=== PATIENT | male | born 1975 | race Hispanic/Latino ===

== ENCOUNTER 2021-01-05 16:24 | Inpatient (IN) | payer OTHER ==
--- OUTSIDE RECORDS SUMMARY | 2021-01-05 16:26 | XMS REPORT | Continuity of Care Document ---
:1975 Author Organization [facility] t Address [address] [place] [address] Care Team Providers Name Role Phone Yamini FISHER, Dyan Oliver Attending Clinician Problems This patient has no known problems. Allergies, Adverse Reactions, Alerts This patient has no known allergies or adverse reactions. Medications This patient has no known medications. Procedures This patient has no known procedures. Encounters Start End Encounter Admission Attending Care Care Encounter Source Date/Time Date/Time Type Type Clinicians Facility Department ID 2021-01-03 2021-01-03 Emergency [facility] [id number] 02:44:00 04:12:00 Dyan Sampson [id number] [place] [id number] [place] [id number] Results This patient has no known results.
[2021-01-05] MEDS ORDERED: MORPHINE 4 MG/ML SYR ONE (18:32)
[2021-01-05] MEDS ORDERED: NA CHLORIDE 0.9% 0 ML ONE (18:32)
[2021-01-05] MEDS ORDERED: ONDANSETRON 4 MG/2 ML VIAL ONE (18:32)
[2021-01-05] MEDS ORDERED: PIPER/TAZO/NS 3.375gm 0 GM/0 ML BAG ONE (18:33)
--- NOTE | 2021-01-05 18:36 | RAD REPORT ---
EXAM DESCRIPTION: RAD - Chest Single View - 01/05/2021 6:21 pm CLINICAL HISTORY: pre-op Chest pain. COMPARISON: No comparisons FINDINGS: Portable technique limits examination quality. The lungs are grossly clear. The heart is normal in size. No displaced fractures. IMPRESSION: No acute intrathoracic process suspected.
[2021-01-05 18:39] LABS: Absolute Lymphocytes (CBC) 0.7 K/uL (0.7-4.9); Basophils % 0.1 % (0-1.3); Hematocrit 42.6 % (39.6-49.0); Lymphocytes % 2.9 % (15.3-44.8); MPV 6.9 fL (7.6-11.3); RBC Red Blood Cell Count 5.18 M/uL (4.33-5.43)
[2021-01-05] MEDS ORDERED: NA CHLORIDE 0.9% 1,000 ML ONE (18:39)
[2021-01-05] MEDS ORDERED: PIPER/TAZO/NS 3.375gm 3.375 GM/100 ML BAG ONE (18:39)
[2021-01-05 18:45] LABS: Protime INR 1.44
--- NOTE | 2021-01-05 18:46 | RAD REPORT ---
EXAM DESCRIPTION: CTAbdomen Pelvis W Contrast - 01/05/2021 6:39 pm CLINICAL HISTORY: Abdominal pain. evaluate abscess COMPARISON: No comparisons TECHNIQUE: Biphasic CT imaging of the abdomen and pelvis was performed with 100 ml non-ionic IV cont rast. All CT scans are performed using dose optimization technique as appropriate and may include automated exposure control or mA/KV adjustment according to patient size. FINDINGS: The lung bases are clear. The liver, spleen, pancreas, adrenal glands and kidneys are within normal limits. No bowel obstruction, free air, or free fluid. . Appendectomy. No evidence of significant lymphaden opathy. Large thick walled complex right sided perianal abscess is present measuring 7.0 x 6.0 cm. Adjacent i nflammatory changes seen in the skin and subcutaneous fatty tissues. No suspicious bony findings. IMPRESSION: Large 7 x 6 cm right-sided perirectal abscess.
[2021-01-05 18:51] LABS: ALT/SGPT 81 U/L (12-78); AST/SGOT 27 U/L (15-37); Albumin 3.1 g/dL (3.4-5.0); Alkaline Phosphatase 173 U/L (45-117); BUN Blood Urea Nitrogen 16 mg/dL (7-18); Bicarbonate 26 mmol/L (21-32); Bilirubin Direct 0.7 mg/dL (0-0.2); Bilirubin Total 1.3 mg/dL (0.2-1.0); Glucose Level 84 mg/dL (74-106); Magnesium 2.3 mg/dL (1.8-2.4); NT PRO-BNP 95 pg/mL (<125); Potassium 3.2 mmol/L (3.5-5.1); Protein, Total 9.2 g/dL (6.4-8.2); Sodium Level 133 mmol/L (136-145); Troponin (Emerg Dept Use Only) < 0.02 ng/mL (0.0-0.045)
--- NOTE | 2021-01-05 19:00 | ER ---
Nurse's Notes [facility] Name: Kory Aguilar Age: 45 yrs Sex: Male : 1975 Arrival Date: 01/05/2021 Time: 16:25 Bed 8 Private MD: Diagnosis: Right sided perianal abscess;Elevated white blood cell count Presentation: 01/05 17:07 Chief complaint: Patient states: Abscess on the anal region x 1 week. Was seen by Dr. tamela Emanuel today and was sent to the ER. Coronavirus screen: Client denies travel out of the [place] in the last 14 days. At this time, the client does not indicate any symptoms associated with coronavirus-19. Ebola Screen: Patient negative for fever greater than or equal to 101.5 degrees Fahrenheit, and additional compatible Ebola Virus Disease symptoms Patient denies exposure to infectious person. Patient denies travel to an Ebola-affected area in the 21 days before illness onset. No symptoms or risks identified at this time. Initial Sepsis Screen: Does the patient meet any 2 criteria? No. Patient's initial sepsis screen is negative. Does the patient have a suspected source of infection? No. Patient's initial sepsis screen is negative. Risk Assessment: Do you want to hurt yourself or someone else? Patient reports no desire to harm self or others. Onset of symptoms was January 05, 2021. 17:07 Method Of Arrival: Wheelchair ca1 17:07 Acuity: FRANCIS 3 ca1 Historical: - Allergies: 17:09 No Known Allergies; ca1 - Home Meds: 17:10 valsartan-hydrochlorothiazide 320-12.5 mg oral tab 1 tab once daily [Active]; ca1 - PMHx: 17:09 Hypertension; ca1 - PSHx: 17:10 Appendectomy; ca1 - Immunization history:: Flu vaccine is not up to date. - Social history:: Smoking status: Patient denies any tobacco usage or history of. Screenin:20 Abuse screen: Denies threats or abuse. Nutritional screening: No deficits noted. aa5 Tuberculosis screening: No symptoms or risk factors identified. Fall Risk None identified. Assessment: 18:10 General: Appears uncomfortable, Behavior is calm, cooperative. Pain: Complains of pain aa5 in gluteal cleft Pain currently is 10 out of 10 on a pain scale. Quality of pain is described as pressure, tender, Pain began 4-5 days ago Is continuous. Neuro: Level of Consciousness is awake, alert, obeys commands, Oriented to person, place, time, situation. Cardiovascular: Patient's skin is warm and dry. Rhythm is sinus tachycardia. Respiratory: Airway is patent Respiratory effort is even, unlabored, Respiratory pattern is regular, symmetrical. GI: Abdomen is round non-distended, Bowel sounds present X 4 quads. Abd is soft and non tender X 4 quads. Reports nausea. : No signs and/or symptoms were reported regarding the genitourinary system. EENT: No signs and/or symptoms were reported regarding the EENT system. Derm: Skin is pink, warm \T\ dry. Musculoskeletal: Range of motion: intact in all extremities. 18:30 Reassessment: Patient is alert, oriented x 3, equal unlabored respirations, skin aa5 warm/dry/pink. Patient states feeling better. Pt to CT via stretcher. 19:00 Reassessment: Patient is alert, oriented x 3, equal unlabored respirations, skin aa5 warm/dry/pink. Pain: Pain currently is 9 out of 10 on a pain scale. 20:21 Reassessment: Patient and/or family updated on plan of care and expected duration. Pain ea level reassessed. Patient is alert, oriented x 3, equal unlabored respirations, skin warm/dry/pink. Pt admitted to second floor, left ED via stretcher per tech. Pt tolerating well. Vital Signs: 17:07 BP 142 / 94; Pulse 122; Resp 18 S; Temp 98.9; Pulse Ox 95% on R/A; Weight 95.25 kg (R); ca1 Height 5 ft. 9 in. (175.26 cm) (R); Pain 10/10; 18:17 BP 145 / 105; Pulse 120; Resp 22 S; Pulse Ox 98% on R/A; aa5 20:22 BP 149 / 90; Pulse 113; Resp 18; Temp 98.9; Pulse Ox 95% ; ea 17:07 Body Mass Index 31.01 (95.25 kg, 175.26 cm) ca1 ED Course: 16:25 Patient arrived in ED. am2 16:27 Radha Ivey MD is Attending Physician. ma2 17:08 Triage completed. ca1 17:10 Arm band placed on right wrist. ca1 17:11 Magalys Kevin FNP-C is PHCP. kb 17:11 Radha Ivey MD is Attending Physician. kb 18:01 Magalys Kevin FNP-C is PHCP. kb 18:01 Radha Ivey MD is Attending Physician. kb 18:06 Brie Avalos, DAVID is Primary Nurse. aa5 18:15 Patient has correct armband on for positive identification. Bed in low position. Call aa5 light in reach. Side rails up X2. 18:20 Initial lab(s) drawn, by me, sent to lab. Inserted saline lock: 20 gauge in right aa5 antecubital area, using aseptic technique. Blood collected. 18:22 XRAY Chest (1 view) In Process Unspecified. EDMS 18:38 CT Abd/Pelvis - IV Contrast Only In Process Unspecified. EDMS 18:59 Selwyn Emanuel MD is Hospitalizing Provider. kb 19:00 Report given to DAVID Santiago and DAVID Joe. aa5 20:16 No provider procedures requiring assistance completed. Patient admitted, IV remains in ea place. Administered Medications: 18:07 CANCELLED (Physician Discretion): D5-1/2 NS with KCl 10 mEq/L 1000 ml IV at 100 ml/hr aa5 continuous 18:22 Drug: NS 0.9% 1000 ml Route: IV; Rate: 1000 ml; Site: right antecubital; aa5 20:23 Follow up: Response: No adverse reaction; IV Status: Completed infusion; IV Intake: ea 1000ml 18:22 Drug: morphine 4 mg Route: IVP; Site: right antecubital; aa5 18:30 Follow up: Response: No adverse reaction; Pain is decreased aa5 18:22 Drug: Zofran (Ondansetron) 4 mg Route: IVP; Site: right antecubital; aa5 18:30 Follow up: Response: No adverse reaction aa5 18:25 Drug: Zosyn 3.375 grams Route: IVPB; Infused Over: 60 mins; Site: right antecubital; aa5 19:00 Follow up: Response: No adverse reaction aa5 19:30 Drug: Potassium Chloride 40 mEq Route: PO; ea 20:23 Follow up: Response: No adverse reaction ea Intake: 20:23 IV: 1000ml; Total: 1000ml. ea Outcome: 19:00 Decision to Hospitalize by Provider. kb 20:21 Admitted to Med/surg accompanied by tech, via stretcher, room 410, with chart, Report ea called to Receiving nurse 20:21 Condition: stable 20:21 Instructed on the need for admit, Demonstrated understanding of instructions. 20:23 Patient left the ED. ea Signatures: Dispatcher [employer] EDMS Magalys Kevin, MOLD MAKER-C MOLD MAKER-CkBrie Arellano, RN RN Ayala Lane Elena, RN RN Radha Vo MD MD ma2 Aleshia Hutchinson RN RN ca1
--- NOTE | 2021-01-05 19:01 | EDPHYS ---
Physician Documentation [facility] Name: Kory Aguilar Age: 45 yrs Sex: Male : 1975 Arrival Date: 01/05/2021 Time: 16:25 Bed 8 Private MD: ED Physician Radha Ivey HPI: 01/05 16:28 This 45 yrs old Male presents to ER via Unassigned with complaints of dr rissa tracy/rectal pain. 16:28 Dr. Zeng called me. He sent the patient from his office he would like to drain his ma2 large perianal abscess in the OR as it was too large to be done at the office. he would like the patient to get evaluated and request admission from the hospitalist if the patient has chronic medical problems. . patient will be in the waiting room at this time as there is no available bed in er at this time. 19:13 The patient presents with an abscess of the gluteal cleft. Description: draining, kb erythematous, swollen, warm. Onset: The symptoms/episode began/occurred 1 week(s) ago. Possible cause(s): unknown. Associated signs and symptoms: Pertinent positives: drainage, erythema, swelling. Modifying factors: the symptoms are alleviated by nothing, the symptoms are aggravated by movement, pressure, sitting, squeezing the lesion and expressing the contents, touching. Severity of symptoms: At their worst the symptoms were severe, in the emergency department the symptoms are unchanged. The patient has not experienced similar symptoms in the past. The patient has not recently seen a physician. 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 Sent to ER for evaluation and admission. Dr Tracy will take pt to the OR in the morning. Pt reports the abscess has been there for about a week, progressively getting worse. Historical: - Allergies: 17:09 No Known Allergies; ca1 - Home Meds: 17:10 valsartan-hydrochlorothiazide 320-12.5 mg oral tab 1 tab once daily [Active]; ca1 - PMHx: 17:09 Hypertension; ca1 - PSHx: 17:10 Appendectomy; ca1 - Immunization history:: Flu vaccine is not up to date. - Social history:: Smoking status: Patient denies any tobacco usage or history of. ROS: 19:10 Constitutional: Negative for fever, chills, and weight loss, Cardiovascular: Negative kb for chest pain, palpitations, and edema, Respiratory: Negative for shortness of breath, cough, wheezing, and pleuritic chest pain, Abdomen/GI: Negative for abdominal pain, nausea, vomiting, diarrhea, and constipation, MS/Extremity: Negative for injury and deformity, Neuro: Negative for headache, weakness, numbness, tingling, and seizure. 19:10 Skin: Positive for abscess, erythema, swelling, of the gluteal cleft. Exam: 19:12 Constitutional: This is a well developed, well nourished patient who is awake, alert, kb and in no acute distress. Head/Face: Normocephalic, atraumatic. Cardiovascular: Regular rate and rhythm with a normal S1 and S2. No gallops, murmurs, or rubs. No pulse deficits. Respiratory: Respirations even and unlabored. No increased work of breathing, no retractions or nasal flaring. Abdomen/GI: Soft, non-tender. No distention MS/ Extremity: Pulses equal, no cyanosis. Neurovascular intact. Full, normal range of motion. Neuro: Awake and alert, GCS 15, oriented to person, place, time, and situation. Moves all extremities. Normal gait. 19:12 Skin: abscess, that is large, of the gluteal cleft, with drainage, with fluctuance, with induration, with surrounding cellulitis, that is moderate. Vital Signs: 17:07 BP 142 / 94; Pulse 122; Resp 18 S; Temp 98.9; Pulse Ox 95% on R/A; Weight 95.25 kg (R); ca1 Height 5 ft. 9 in. (175.26 cm) (R); Pain 10/10; 18:17 BP 145 / 105; Pulse 120; Resp 22 S; Pulse Ox 98% on R/A; aa5 20:22 BP 149 / 90; Pulse 113; Resp 18; Temp 98.9; Pulse Ox 95% ; ea 17:07 Body Mass Index 31.01 (95.25 kg, 175.26 cm) ca1 MDM: 18:04 Patient medically screened. kb 18:56 Data reviewed: vital signs, nurses notes. Data interpreted: Pulse oximetry: on room air kb is 98 %. Interpretation: normal. Counseling: I had a detailed discussion with the patient and/or guardian regarding: the historical points, exam findings, and any diagnostic results supporting the discharge/admit diagnosis, lab results, radiology results, the need for further work-up and treatment in the hospital. Physician consultation: Selwyn Tracy MD was contacted at 18:58, regarding admission, to the medical/surgical unit. and will see patient. 01/05 16:34 Order name: Basic Metabolic Panel; Complete Time: 18:52 ma2 01/05 16:34 Order name: CBC with Diff ma2 01/05 16:34 Order name: LFT's; Complete Time: 18:52 ma2 01/05 16:34 Order name: Magnesium; Complete Time: 18:52 ma2 01/05 16:34 Order name: NT PRO-BNP; Complete Time: 18:52 ma2 01/05 16:34 Order name: PT-INR; Complete Time: 18:50 ma2 01/05 16:34 Order name: Troponin (emerg Dept Use Only); Complete Time: 18:52 ma2 01/05 16:34 Order name: XRAY Chest (1 view); Complete Time: 18:37 ma2 01/05 17:21 Order name: CT Abd/Pelvis - IV Contrast Only; Complete Time: 18:50 kb 01/05 18:53 Order name: Lactate kb 01/05 18:53 Order name: Procalcitonin kb 01/05 18:54 Order name: Lactate; Complete Time: 20:06 EDMS 01/05 19:34 Order name: SARS-COV-2 RT PCR; Complete Time: 19:35 EDMS 01/05 16:34 Order name: EKG; Complete Time: 16:35 ma2 01/05 16:34 Order name: Cardiac monitoring; Complete Time: 19:04 ma2 01/05 16:34 Order name: EKG - Nurse/Tech; Complete Time: 19:04 ma2 01/05 16:34 Order name: IV Saline Lock; Complete Time: 18:31 ma2 01/05 16:34 Order name: Labs collected and sent; Complete Time: 18:31 ma2 01/05 16:34 Order name: O2 Per Protocol; Complete Time: 18:31 ma2 01/05 16:34 Order name: O2 Sat Monitoring; Complete Time: 18:31 ma2 01/05 16:34 Order name: NPO: at midnight; Complete Time: 18:07 ma2 Administered Medications: 18:07 CANCELLED (Physician Discretion): D5-1/2 NS with KCl 10 mEq/L 1000 ml IV at 100 ml/hr aa5 continuous 18:22 Drug: NS 0.9% 1000 ml Route: IV; Rate: 1000 ml; Site: right antecubital; aa5 20:23 Follow up: Response: No adverse reaction; IV Status: Completed infusion; IV Intake: ea 1000ml 18:22 Drug: morphine 4 mg Route: IVP; Site: right antecubital; aa5 18:30 Follow up: Response: No adverse reaction; Pain is decreased aa5 18:22 Drug: Zofran (Ondansetron) 4 mg Route: IVP; Site: right antecubital; aa5 18:30 Follow up: Response: No adverse reaction aa5 18:25 Drug: Zosyn 3.375 grams Route: IVPB; Infused Over: 60 mins; Site: right antecubital; aa5 19:00 Follow up: Response: No adverse reaction aa5 19:30 Drug: Potassium Chloride 40 mEq Route: PO; ea 20:23 Follow up: Response: No adverse reaction ea Disposition: 01/06 18:46 Co-signature as Attending Physician, Radha Ivey MD. ma2 Disposition: 01/05/21 19:00 Hospitalization ordered by Selwyn Tracy for Observation. Preliminary diagnosis are Right sided perianal abscess, Elevated white blood cell count. - Bed requested for Telemetry/MedSurg (observation). - Status is Observation. ea - Condition is Stable. - Problem is new. - Symptoms are unchanged. Signatures: Dispatcher [employer] EDAL Magalys Kevin, MIKE-C QUILL CLEANING MACHINE OPERATOR-Edna Rojas RN RN Brie Avalos RN RN aa5 Pamela Jacob RN RN ea Alzahri, Mohammad, MD MD ma2 Aleshia Hutchinson RN RN ca1 Corrections: (The following items were deleted from the chart) 01/05 18:07 16:34 D5-1/2 NS with KCl 10 mEq/L 1000 ml IV at 100 ml/hr continuous ordered. ma2 aa5 18:33 18:02 CORONAVIRUS+MR.LAB.BRZ ordered. EDAL EDMS 19:40 19:00 Hospitalization Ordered by Selwyn Tracy MD for Observation. Preliminary mw diagnosis is Right sided perianal abscess; Elevated white blood cell count. Bed requested for Telemetry/MedSurg (observation). Status is Observation. Condition is Stable. Problem is new. Symptoms are unchanged. kb 20:23 19:40 01/05/2021 19:00 Hospitalization Ordered by Selwyn Tracy MD for Observation. ea Preliminary diagnosis is Right sided perianal abscess; Elevated white blood cell count. Bed requested for Telemetry/MedSurg (observation). Status is Observation. Condition is Stable. Problem is new. Symptoms are unchanged. mw
[2021-01-05] MEDS ORDERED: POTASSIUM CL SA 10 MEQ TAB PO ONE (19:38)
[2021-01-05] MEDS ORDERED: ONDANSETRON 4 MG/2 ML VIAL IV PRN (21:16)
[2021-01-05] MEDS ORDERED: ACETAMINOPHEN 500 MG TAB PO PRN (21:16)
[2021-01-05 21:17] VITALS: BMI 31.0
[2021-01-05 22:13] LABS: Blood Morphology Comment NOT SEEN (NOT SEEN); Platelet Estimate ADEQ
[2021-01-05] MEDS: D5 0.45 NS 1,000 ML IV SCH (22:47)
[2021-01-05] MEDS: MORPHINE 4 MG/ML SYR IV PRN (22:48)
[2021-01-05] MEDS ORDERED: PIPERACIL/TAZO 3.375 GM VIAL IV ONE (23:30)
[2021-01-05] MEDS ORDERED: NA CHLORIDE 0.9% 100 ML ONE (23:33)
[2021-01-05] MEDS: PIPER/TAZO/NS 3.375gm 3.375 GM/100 ML BAG IVPB SCH ×2 (23:44→23:45)
[2021-01-06 04:11] LABS: Absolute Lymphocytes (CBC) 1.8 K/uL (0.7-4.9); Basophils % 0.1 % (0-1.3); Hematocrit 35.4 % (39.6-49.0); Lymphocytes % 7.3 % (15.3-44.8); MPV 7.2 fL (7.6-11.3); RBC Red Blood Cell Count 4.34 M/uL (4.33-5.43)
[2021-01-06 04:29] LABS: BUN Blood Urea Nitrogen 11 mg/dL (7-18); Bicarbonate 25 mmol/L (21-32); Glucose Level 87 mg/dL (74-106); Potassium 3.5 mmol/L (3.5-5.1); Sodium Level 132 mmol/L (136-145)
[2021-01-06] MEDS: MORPHINE 4 MG/ML SYR IV PRN ×2 (04:33→09:07)
[2021-01-06] MEDS: D5 0.45 NS 1,000 ML IV SCH ×3 (05:16→21:16)
[2021-01-06] MEDS ORDERED: INFLUENZA VACCINE (for 3y+) 0.5 ML DOSE IMVAC ONE (09:00)
[2021-01-06] MEDS: PIPER/TAZO/NS 3.375gm 3.375 GM/100 ML BAG IVPB SCH ×2 (09:06→17:10)
--- NOTE | 2021-01-06 12:54 | EKG ---
Test Date: 2021-01-05 Test Time: 18:59:24 Finish Patcher: OTTO MEASUREMENT RESULTS: Intervals: Rate: 112 AL: 130 QRSD: 96 QT: 308 QTc: 420 [place]: P: 25 AL: 130 QRS: 29 T: -5 INTERPRETIVE STATEMENTS: Sinus tachycardia Nonspecific T wave abnormality Abnormal ECG No previous ECG available for comparison Electronically Signed On 01-06-21 12:52:40 CDT by Ganesh Rios
[2021-01-06] MEDS ORDERED: Ringers Lactate 1,000 ML IV ONE (13:38)
[2021-01-06] MEDS ORDERED: FENTANYL CITR 100 MCG/2 ML ONE ×2 (14:54→15:46)
[2021-01-06] MEDS ORDERED: dexAMETHasone 10 MG/ML VIAL ONE (14:54)
[2021-01-06] MEDS ORDERED: MIDAZOLAM HCL 2 MG/2 ML INJ ONE (14:54)
[2021-01-06] MEDS ORDERED: LIDOCAINE 1% MPF 30 ML VIAL ONE (14:55)
[2021-01-06] MEDS ORDERED: ONDANSETRON 4 MG/2 ML VIAL ONE (14:55)
[2021-01-06] MEDS ORDERED: KETOROLAC 30 MG/ML INJ ONE (14:55)
[2021-01-06] MEDS ORDERED: propofoL 200 MG/20 ML VIAL IV ONE (14:57)
[2021-01-06] MEDS ORDERED: HYDROCODONE/APAP 7.5/325 MG TAB PO PRN (15:51)
--- NOTE | 2021-01-06 15:55 | P.BOP ---
Preoperative diagnosis: perinal/perirectal abscess Postoperative diagnosis: same Primary procedure: I &D complex perianal/perirectal abscess 7x6 cm Secondary procedure: EUA, anoscopy, rigid proctoscopy Estimated blood loss: <20cc Specimen: pus Findings: as above Anesthesia: General Complications: None Transferred to: Recovery Room Condition: Good
[2021-01-06] MEDS: Levofloxacin 750mg IV 750 MG/150 ML BAG IV SCH (17:06)
--- NOTE | 2021-01-07 00:07 | CON ---
Date of Consultation: 01/06/2021 Diagnosis: Perianal abscess. History Of Present Illness: This is a case of a 45-year-old patient who was seen yesterday in my off ice for perianal abscess. The patient including said the pain was a little bit worse. History of hy pertension. He was sent to the ER. He was admitted overnight, started on IV antibiotics, IV medicat ion. He does not remember exactly what happened. He does know he has this lump, which is large in t he perianal region. No trauma that he can remember. Review of Systems: No shortness of breath. No chest pain. No fever. Ten points otherwise unremarkable. Medical History: Includes hypertension. Medications: Unknown. Allergies: NONE. Social History: He does not drink alcohol. He does not smoke. Family History: Noncontributory. No history of colon cancer. Physical Examination: General: The patient is awake and alert. HEENT: Pupils are equal and reactive, anicteric. Neck: Supple. Chest: Clear. Abdomen: Soft and depressible. Skin: Perianal region shows a large area of about 7 x 6 cm that at least has a swelling, tenderness, bulging consistent with perianal abscess. Extremities: Good capillary refill. Imaging: CAT scan of the abdomen and pelvis interpreted by Dr. Gambino as a large 7 x 6 cm right-sided perirectal abscess. Assessment: Perianal perirectal abscess. The patient fully explained the need for examination under anesthesia, anoscopy, proctoscopy, incision and drainage of the perianal perirectal abscess with guerrero efits, alternatives, and risks including, but not limited to infection, bleeding, damage to adjacent structures, anesthesia complication, bowel perforation, GA, and even . He also understands this may not relieve his symptoms. He might need more than one surgical intervention. He understands he may require wound care. HM/MODL Voice ID: [id number] Report ID: [id number]
[2021-01-07] MEDS: PIPER/TAZO/NS 3.375gm 3.375 GM/100 ML BAG IVPB SCH ×3 (00:47→16:09)
[2021-01-07] MEDS: MORPHINE 2 MG/ML SYR IV PRN ×3 (00:56→11:37)
--- NOTE | 2021-01-07 02:38 | OP ---
Date of Procedure: 01/06/2021 Surgeon: Selwyn Emanuel MD Preoperative Diagnosis: Perianal and perirectal abscess. Postoperative Diagnosis: Perianal and perirectal abscess. Procedure: Incision and drainage of complex perianal/perirectal abscess 7 x 6 cm, examination under anesthesia, anoscopy, rigid proctoscopy. Specimen: Pus. Finding: Complex abscess from the perianal to the perirectal area. Anesthesia: General plus local. Indications: This is a case of a 45-year-old patient who comes with the above. Fully explained the benefits, alternatives, and risks of EUA, anoscopy, proctoscopy, incision and drainage of perianal an d perirectal abscess, which include, but not limited to infection, bleeding, damage to adjacent struc tures, anesthesia complication, nonhealing wound, chronic wound, anal stricture and incontinence, bow el perforation, KS, even . He also understands this may not relieve his symptoms. He might nee d more than one surgical intervention and he will require wound care. He understood, signed the cons ent. Procedure In Detail: The patient was brought to the operating room, placed in supine position. Anes thesia was done without complication. A time-out was called. Precautions were done. At that moment , we proceeded to prep the area in usual sterile fashion. The patient was placed in lateral position before that. A time-out was called. After that I proceeded to do rectal examination and patient galan s a necrotic wound on the perianal region that leading to a large abscess. We did an anoscopy, rigid proctoscopy under direct visualization in the center of the lumen after insufflation without resista nce, and we noticed no major tumors all the way about to 10 cm. We cannot pass anymore since the [facility] ie has a large amount of stools and this evaluation is limited. We did not see any gross mass in t hat region. Once again, a colonoscopy have to be done in the future to look at that area a little bi t better once this acute process has gone. At that moment, I proceeded to remove a necrotic area davion t gave us access to a large abscess coming from perianal now the perirectal region. A counter incisi on had to be made to allow better drainage for this. The sphincter was protected at all times. Prof use irrigation of the area was done. Hemostasis was obtained. Local anesthesia was applied. Then t he area was packed with several inch iodoform packing. The patient tolerated the procedur e well. The patient was sent to Recovery in stable condition. DAVE/RYAN Voice ID: [id number] Report ID: [id number]
[2021-01-07] MEDS: D5 0.45 NS 1,000 ML IV SCH ×3 (05:16→22:26)
[2021-01-07] MEDS: Levofloxacin 750mg IV 750 MG/150 ML BAG IV SCH (15:04)
[2021-01-07 23:15] VITALS: O2SAT 96
[2021-01-08] MEDS: MORPHINE 4 MG/ML SYR IV PRN (00:26)
[2021-01-08] MEDS: PIPER/TAZO/NS 3.375gm 3.375 GM/100 ML BAG IVPB SCH ×2 (00:27→09:18)
[2021-01-08 04:11] LABS: Absolute Lymphocytes (CBC) 2.5 K/uL (0.7-4.9); Basophils % 0.1 % (0-1.3); Hematocrit 34.6 % (39.6-49.0); Lymphocytes % 19.1 % (15.3-44.8); MPV 7.3 fL (7.6-11.3); RBC Red Blood Cell Count 4.21 M/uL (4.33-5.43)
[2021-01-08 04:49] LABS: BUN Blood Urea Nitrogen 13 mg/dL (7-18); Bicarbonate 26 mmol/L (21-32); Glucose Level 95 mg/dL (74-106); Potassium 3.8 mmol/L (3.5-5.1); Sodium Level 142 mmol/L (136-145)
[2021-01-08] MEDS: MORPHINE 2 MG/ML SYR IV PRN ×2 (07:06→10:37)
[2021-01-08] MEDS: D5 0.45 NS 1,000 ML IV SCH (09:19)
--- NOTE | 2021-01-08 12:33 | P.DS ---
Admission Date: 01/06/21 Discharge Date: 01/08/21 Disposition: ROUTINE DISCHARGE Discharge Condition: GOOD Vital Signs/Physical Exam: Temp Pulse Resp BP Pulse Ox 97.0 F 61 16 135/83 99 01/08/21 08:00 01/08/21 08:00 01/08/21 08:00 01/08/21 08:00 01/08/21 08:00 General: Alert, In no apparent distress, Oriented x3, Cooperative HEENT: Normocephalic Neck: Supple Respiratory: Normal air movement Cardiovascular: No edema, Normal pulses Gastrointestinal: Normal bowel sounds, Soft and benign Musculoskeletal: No erythema, No tenderness Integumentary: Other (surgical wounds with no purulent discharge, better. cellutis area smaller) Laboratory Data at Discharge: WBC 13.20 K/uL (4.3-10.9) H D 01/08/21 02:55 Hgb 11.8 g/dL (13.6-17.9) L 01/08/21 02:55 Hct 34.6 % (39.6-49.0) L 01/08/21 02:55 Plt Count 386 K/uL (152-406) 01/08/21 02:55 PT 16.6 SECONDS (9.5-12.5) H 01/05/21 18:20 INR 1.44 01/05/21 18:20 Sodium 142 mmol/L (136-145) 01/08/21 02:55 Potassium 3.8 mmol/L (3.5-5.1) 01/08/21 02:55 BUN 13 mg/dL (7-18) 01/08/21 02:55 Creatinine 0.75 mg/dL (0.55-1.3) 01/08/21 02:55 Glucose 95 mg/dL (74-106) 01/08/21 02:55 Magnesium 2.3 mg/dL (1.8-2.4) 01/05/21 18:20 Total Bilirubin 1.3 mg/dL (0.2-1.0) H 01/05/21 18:20 AST 27 U/L (15-37) 01/05/21 18:20 ALT 81 U/L (12-78) H 01/05/21 18:20 Alkaline Phosphatase 173 U/L (45-117) H 01/05/21 18:20 Home Medications: Amlodipine Besylate [Norvasc] 10 mg PO DAILY 01/05/21 Atorvastatin Calcium [Lipitor*] 10 mg PO DAILY 01/05/21 Cetirizine HCl [Zyrtec] 10 mg PO DAILY 01/05/21 Sertraline HCl 50 mg PO DAILY 01/05/21 Valsartan/Hydrochlorothiazide [Valsartan-Hctz 320-12.5 mg Tab] 1 tab PO DAILY 01/05/21 Physician Discharge Instructions: dry gauze to perianal wound bid Diet: AHA Activity: No lifting more than 10 lbs Followup: TOM SANTOS [Primary Care Provider] -
[2021-01-08 12:59] VITALS: BP 148/95; TEMP 97.3
== END 2021-01-08 14:45 | disposition home or self-care (01) | DRG 344 ==
LOC: ER 16:24 → ERHOLD 20:02 → 4TH 20:27 → OBSVTOIN 01-06 13:08 → 4TH 01-06 17:45
PROVIDERS: ADMIT Surgery; ATTEND Surgery
PROC: 0D9Q0ZZ Drainage of Anus, Open Approach (ICD-10-PCS; 2021-01-06)
PROC: 0D9P0ZZ Drainage of Rectum, Open Approach (ICD-10-PCS; principal; 2021-01-06 13:15)
DX: K61.1 Rectal abscess (principal); U07.1 COVID-19; K61.0 Anal abscess; I10 Essential (primary) hypertension; Z79.899 Other long term (current) drug therapy; Z90.49 Acquired absence of other specified parts of digestive tract
CPT/HCPCS: 36415; 71045; 74177; 80048; 80076; 82565; 83605; 83735; 83880; 84145; 84484; 85025; 85610; 87070; 87075; 87077; 87186; 87205; 93005; 94010; 96361; 96374; 96375; 99285; G0378; J1100; J2250; J2270; J2405; J2543; J2704; J3010; J7030; J7120; J7799; Q9967; U0003